=== PATIENT | male | born 1985 | race Two or more races ===

== ENCOUNTER 2017-11-20 16:54 | Emergency (ER) | payer MEDICAID ==
[~2017-11-20] VITALS: Ht 172.7 cm; Wt 68.0 kg
[2017-11-20] MEDS ORDERED: Tetanus/Diptheria/Pertussis Vaccine 0.5ml Syr IM ONE ×2 (16:57→17:00)
[2017-11-20 17:04] VITALS: BP 122/81
[2017-11-20] MEDS ORDERED: Norco 5mg/325mg tab ORAL ONE (17:15)
--- NOTE | 2017-11-20 18:05 | Emergency Room Report ---
History of Present Illness General Chief Complaint: Upper Extremity Injury Source: EMS Present Illness HPI 32-year-old male presents emergency department complaining of 10 out of 10 in severity knuckle pain to bilateral hand status post punching a wall while at home. Patient also reports bleeding and open wounds. Patient does not know when his last tetanus vaccination was. Patient states pain is exacerbated upon palpation or finger movements. Denies numbness tingling or loss of sensation or gross motor movements of the extremities, incontinence of bowel or bladder. Denies CP, Palpitations, LOC, AMS, dizziness, Changes in Vision, weakness or a sudden severe headache. Denies taking blood thinning medications. Allergies: Coded Allergies: No Known Allergies (Unverified , 11/20/17) Patient History Past Medical History: see triage record Past Surgical History: none Pertinent Family History: none Reviewed Nursing Documentation: PMH: Agreed; PSxH: Agreed Nursing Documentation-PMH Past Medical History: No History, Except For Hx Asthma: Yes Review of Systems All Other Systems: negative except mentioned in HPI Physical Exam Vital Signs Date Time Temp Pulse Resp B/P (MAP) Pulse Ox O2 Delivery O2 Flow Rate FiO2 11/20/17 16:38 97.9 103 16 122/81 99 Room Air 97.9 Sp02 EP Interpretation: reviewed, normal General Appearance: no apparent distress, alert, GCS 15, non-toxic Head: normocephalic, atraumatic ENT: hearing grossly normal, normal voice Neck: full range of motion Respiratory: lungs clear, normal breath sounds, speaking full sentences Cardiovascular #1: regular rate, rhythm, normal capillary refill Musculoskeletal: back normal, gait/station normal, normal range of motion, tender - TTP to knuckles 2-5 bilaterally, swelling noted to right 5th metacarpal. Neurologic: alert, oriented x3, responsive, motor strength/tone normal, sensory intact, normal gait, speech normal, grossly normal Psychiatric: judgement/insight normal Skin: normal color, warm/dry, abrasions - abrasion of the right 3rd metacarpal 1cm. and several more superficial abrasions over 2nd and 4th metacarpals bilaterally. Procedures Laceration/Wound Repair Laceration/Wound Repair : Consent: Verbal Wound Location: upper extremity - right 3rd metacarpal Wound's Depth, Shape: superficial Wound Length (cm): 1 Wound Explored: clean Irrigated w/ Saline (ccs): 500 Betadine Prep?: Yes Wound Repaired With: Dermabond Layer Closure?: No Sterile Dressing Applied?: Yes Splint Applied?: Yes - ulnar gutter Type of Splint Applied: ulnar gutter Sling Applied?: No Patient Tolerated: Well Complications: None Medical Decision Making PAULINO Spangleration Dr. Chino is my supervising Physician whom patient management has been discussed with. Diagnostic Impression: Primary Impression: Boxer's fracture Qualified Codes: S62.339A - Displaced fracture of neck of unspecified metacarpal bone, initial encounter for closed fracture Additional Impression: Abrasion of multiple sites of hand and finger Qualified Codes: S60.519A - Abrasion of unspecified hand, initial encounter; S60.419A - Abrasion of unspecified finger, initial encounter ER Course 32-year-old male presents emergency department complaining of 10 out of 10 in severity knuckle pain to bilateral hand status post punching a wall while at home. Patient also reports bleeding and open wounds. Patient does not know when his last tetanus vaccination was. Patient states pain is exacerbated upon palpation or finger movements. Denies numbness tingling or loss of sensation or gross motor movements of the extremities, incontinence of bowel or bladder. Denies CP, Palpitations, LOC, AMS, dizziness, Changes in Vision, weakness or a sudden severe headache. Denies taking blood thinning medications. Ddx considered but are not limited to Fracture, dislocation, contusion, Sprain/ Strain/Spasm, abrasions, lacerations just to name a few. Vital signs: are WNL, pt. is afebrile H&PE are most consistent with musculoskeletal injury with multiple abrasions will perform imaging to r/o fractures/dislocations. ORDERS: - X-ray hand right and left 3 views each - negative for fx, Dislocation, or significant soft tissue injury, per preliminary read in ED, and signed by PAULINO Mayo, my supervising physician has reviewed, and agrees with my interpretation. ED INTERVENTIONS: - Motrin PO - Breeden PO - Wound cleaning -Tdap IM -derma whelan on abrasion of the right 3rd metacarpal 1cm. -Ulnar Gutter Splint applied by civil geotechnical engineer. Pt. remains neurovascularly intact. d/w pt. orthopedic follow up. DISCHARGE: At this time pt. is stable for d/c to home. Will provide printed patient care instructions, and any necessary prescriptions. Care plan and follow up instructions have been discussed with the patient prior to discharge. Other X-Ray Diagnostic Results Other X-Ray Diagnostic Results #1: X-Ray ordered: Left Hand # of Views/Limited Vs Complete: 3 View Indication: Pain EP Interpretation: Yes PAULINO Xray: Interpretation reviewed, by supervising MD, and agrees with findings. Interpretation: no dislocation, no soft tissue swelling, no fractures Impression: No acute disease Electronically Signed by: Jennie Mayo PA-C Other X-Ray Diagnostic Results #2: X-Ray ordered: Right hand # of Views/Limited Vs Complete: 3 View Indication: Pain EP Interpretation: Yes PA Xray: Interpretation reviewed Interpretation: no dislocation, no soft tissue swelling, other - distal 5th metacarpal fx, mild displacement. Impression: Other - abnormal Electronically Signed by: Jennie Mayo PA-C Last Vital Signs Date Time Temp Pulse Resp B/P (MAP) Pulse Ox O2 Delivery O2 Flow Rate FiO2 11/20/17 17:40 97.9 11/20/17 17:04 74 16 122/81 99 Room Air Disposition: HOME, SELF-CARE Condition: Stable Scripts Ibuprofen* (MOTRIN*) 600 Mg Tablet 600 MG ORAL THREE TIMES A DAY, #30 TAB 0 Refills Prov: Jennie Mayo 11/20/17 Hydrocodone Bit/Acetaminophen 5-325* (NORCO 5-325*) 1 Each Tablet 1 TAB ORAL Q6H PRN for For Pain, #10 TAB 0 Refills Prov: Jennie Mayo 11/20/17 Patient Instructions: Abrasion, [id number], Boxer's Fracture Additional Instructions: Take medications as directed. Follow up with an [facility] in 3-5 days, even if your symptoms have resolved. If symptoms persist MRI may be required at the discretion of your PCP or Ortho Specialist. --Please review list of primary care clinics, if you do not already have a primary care provider who can give you an Orthopedic Referral. Return sooner to ED if new symptoms occur, or current symptoms become worse. Do not drink alcohol, drive, or operate heavy machinery while taking Breeden as this may cause drowsiness. - you have been given this during your visit, and you also are prescribed some temporarily. - Please note that this Emergency Department Report was dictated using [employer] recordist technology software, occasionally this can lead to erroneous entry secondary to interpretation by the dictation equipment. Jennie Mayo Nov 20, 2017 18:05
[2017-11-20] MEDS ORDERED: NORCO 5-325 TA1 EACH ORAL (18:12)
[2017-11-20] MEDS ORDERED: IBUPROFEN600 MG ORAL (18:12)
[2017-11-20 19:05] VITALS: BP 122/81
== END 2017-11-20 19:15 | disposition home or self-care (01) ==
LOC: EDBD 16:54 → EMR 19:06
DX: S62.302A Unspecified fracture of third metacarpal bone, right hand, initial encounter for closed fracture (principal); S60.412A Abrasion of right middle finger, initial encounter; S60.411A Abrasion of left index finger, initial encounter; S60.410A Abrasion of right index finger, initial encounter; S60.415A Abrasion of left ring finger, initial encounter; S60.414A Abrasion of right ring finger, initial encounter; W22.01XA Walked into wall, initial encounter; Y92.009 Unspecified place in unspecified non-institutional (private) residence as the place of occurrence of the external cause; Z23 Encounter for immunization; J45.909 Unspecified asthma, uncomplicated
CPT/HCPCS: 12001; 73130; 90471; 90715; 99284; Z7502